=== PATIENT | female | born 1960 | race Caucasian/White ===

== ENCOUNTER 2023-03-31 07:07 | Observation (INO) ==
--- NOTE | 2023-02-27 12:04 | PAT Medication Instructions ---
Medication Instructions Date of Service February 27, 2023 Home Medications Medication Instructions Recorded hydrocodone 5 mg-acetaminophen 325 1 tab PO Q6H PRN pain #30 tabs 01/25/ mg tablet chlorthalidone 25 mg tablet 12.5 mg PO QAM fluoxetine 40 mg capsule 40 mg PO QAM folic acid 1 mg tablet 2 mg PO QAM levothyroxine 100 mcg tablet (Synthroid) 100 mcg PO QAM losartan 50 mg tablet 50 mg PO QAM metformin 500 mg tablet 500 mg PO BID propranolol 80 mg capsule,24 hr,extended release (Inderal LA) 80 mg PO QAM hydrocodone 5 mg-acetaminophen 325 mg tablet 1 tab PO Q6H PRN pain cholecalciferol (vitamin D3) 25 mcg (1,000 unit) tablet (Vitamin D3) 50 mcg PO QAM methotrexate sodium 2.5 mg tablet 10 mg PO WK upadacitinib 15 mg tablet,extended release 24 hr (Rinvoq) 15 mg PO QAM ASK your prescriber and surgeon upadacitinib 15 mg tablet,extended release 24 hr (Rinvoq) 15 mg PO QAM STOP 7 days prior to surgery (if okay with prescriber) methotrexate sodium 2.5 mg tablet 10 mg PO WK DO NOT take the morning of surgery chlorthalidone 25 mg tablet 12.5 mg PO QAM folic acid 1 mg tablet 2 mg PO QAM losartan 50 mg tablet 50 mg PO QAM metformin 500 mg tablet 500 mg PO BID cholecalciferol (vitamin D3) 25 mcg (1,000 unit) tablet (Vitamin D3) 50 mcg PO QAM Take morning of surgery With a small sip of water, OTHERWISE NOTHING TO EAT OR DRINK AFTER MIDNIGHT: fluoxetine 40 mg capsule 40 mg PO QAM levothyroxine 100 mcg tablet (Synthroid) 100 mcg PO QAM propranolol 80 mg capsule,24 hr,extended release (Inderal LA) 80 mg PO QAM hydrocodone 5 mg-acetaminophen 325 mg tablet 1 tab PO Q6H PRN pain (if needed) Take evening before surgery metformin 500 mg tablet 500 mg PO BID hydrocodone 5 mg-acetaminophen 325 mg tablet 1 tab PO Q6H PRN pain (if needed) Other Notes If you have any questions please call us at [phone] or [phone] or [phone] or [phone]
--- NOTE | 2023-03-02 14:03 | Anesthesiology Consultation ---
Date of Service March 02, 2023 Assessment & Plan (1) Encounter for pre-operative examination: Chart Review Chart Review: Acceptable Risk for Surgery (pending response from PCP re: anemia ) and Patient seen in Pre Admission Testing - Please send optimization form to PCP (Dr. Nikita Pro) re: anemia - Check BSG AM DOS - Due to BMI and PMH- patient is NOT an ideal OPJ candidate (currently scheduled as 23 hour observation) Per [facility] appt on 03/02/23, patient with recent sinus infection (symptoms began around 02/20/23- sinus pressure, nasal congestion- improved - mild residual post nasal drip/congestion, cough). Seen by PCP and treated with abx for sinus infection. No known Covid contacts in the past 21 days. Has not tested Covid positive in the past 90 salgado. Pt is vaccinated for Covid. Preop Covid testing done at [facility] appt 03/02/23=negative. Educated on importance of using Covid precautions one week prior to surgery History Surgery Operation Date: 03/31/23 12:45 Proposed Procedures p Right Total Knee Arthroplasty - Sesar Huhges, Height/Weight Height: 5 ft 3 in Weight: 117.5 kg Allergies Allergy/AdvReac Type Severity Reaction Status Date / Time No Known Drug Allergies Allergy Verified 02/27/23 10:05 adhesive tape AdvReac Intermediate skin Verified 02/27/23 10:05 irritation Medications Home Medications Medication Instructions Recorded Confirmed Last Taken chlorthalidone 25 mg tablet 12.5 mg PO QAM 07/20/22 02/27/23 Unknown fluoxetine 40 mg capsule 40 mg PO QAM 07/20/22 02/27/23 Unknown folic acid 1 mg tablet 2 mg PO QAM 07/20/22 02/27/23 Unknown levothyroxine 100 mcg tablet 100 mcg PO QAM 07/20/22 02/27/23 Unknown (Synthroid) losartan 50 mg tablet 50 mg PO QAM 07/20/22 02/27/23 Unknown metformin 500 mg tablet 500 mg PO BID 07/20/22 02/27/23 Unknown propranolol 80 mg capsule,24 80 mg PO QAM 07/20/22 02/27/23 Unknown hr,extended release (Inderal LA) hydrocodone 5 mg-acetaminophen 325 1 tab PO Q6H PRN pain #30 tabs 01/25/23 02/27/23 Unknown mg tablet cholecalciferol (vitamin D3) 25 50 mcg PO QAM 02/27/23 02/27/23 Unknown mcg (1,000 unit) tablet (Vitamin D3) methotrexate sodium 2.5 mg tablet 10 mg PO WK 02/27/23 02/27/23 Unknown upadacitinib 15 mg tablet,extended 15 mg PO QAM 02/27/23 02/27/23 Unknown release 24 hr (Rinvoq) Past Medical History Medical History Anxiety Chronic kidney disease stage 3b -> stable, follows with Dr Noonan ([place]) Depression Diabetes mellitus, type 2 NIDDM History of hyperthyroidism as a child Hx of motion sickness Hypertension Nausea and vomiting after administration of anesthetic agent Osteoarthritis Postsurgical hypothyroidism Psoriatic arthritis follows with [facility] [place] [facility]. 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 Attempted surgical repair 5 times. Occ bleeding - no infection; currently stable Exercise / Class Metabolic Activity III < 4 Walking/Shop/Light housework (no chest pain or SOB with flat surface ambulation - uses cane ) Past Family History Family History Other No family history of adverse response to anesthesia Past Surgical History Surgical History History of adenoidectomy History of colonoscopy History of rectal surgery several surgeries to attempt to repair the rectal fistula (about 5 surgeries). History of thyroidectomy, subtotal 90% of thyroid removed as a child for hyperthyroidism and goiters. History of tonsillectomy S/P excision of lipoma from the side of knee Past Anesthesia History No Hx of Anesthesia Complications (with exception to PONV ) and No Family Hx of Anesthesia Complications History of PONV History of PONV (improved with pre treating with anti nausea medication ) and Hx of Motion Sickness Social History Smoking Status: Former smoker tobacco type: cigarettes Do You Dip or Chew Tobacco: No Smoking End Date: 1989 Hx Alcohol Use: No Hx Substance Use: No substance use type: does not use Review of Systems Mild residual cough - from recent sinus infection (treated with abx) Hx of snoring- no witnessed apnea- no hx of sleep study Patient denies chest pain, shortness of breath, dyspnea on exertion, reflux, wheezing, palpitations. No hx of seizures, stroke, ND. No hx of blood clots or blood transfusions Physical Exam Vital Signs VITALS BP 140/69 P 81 TEMP 98.3 SP02 98% RESP 16 Constitutional no acute distress ENMT Mouth: no TMJ clicking Thyromental Distance: < 3.5 Finger Breadths Mallampati Class: I Neck + limited neck extension (mild) Respiratory normal respiratory effort; no respiratory distress Auscultation: lungs clear to auscultation bilaterally; no wheezes Cardiovascular Rate/Rhythm: regular rate and regular rhythm Heart Sounds: no murmur Vessels: no carotid bruit Musculoskeletal Spine: + pain with cervical ROM (mild) Extremities: extremities normal to inspection Psychiatric Orientation: alert Lab Results Anesthesia Preop Results Results Anesthesia Widget: WBC 7.28 K/ul (4.8-10.8) 03/02/23 Hgb 10.6 g/dl (12.0-16.0) L 03/02/23 Hct 32.1 % (37.0-47.0) L 03/02/23 Plt 275 K/uL (130-400) 03/02/23 Na 137 mmol/L (136-145) 03/02/23 K 4.5 mmol/L (3.5-5.1) 03/02/23 Cl 101 mmol/L (98-107) 03/02/23 CO2 28 mmol/L (21-32) 03/02/23 BUN 22 mg/dl (6-23) 03/02/23 Creat 1.30 mg/dl (0.6-1.2) H 03/02/23 Glucose Level 79 mg/dl (70-99(Fasting)) 03/02/23 PT 10.7 Seconds (9.0-12.0) 03/02/23 PTT 24.2 Seconds (21.0-31.0) 03/02/23 INR 1.0 (0.9-1.1) 03/02/23 HA1c 5.8 % (4.5-5.6) H 03/02/23 Blood Type O Positive 03/02/23 Antibody Screen NEGATIVE 03/02/23 Testing Laboratory Results Anemia- optimization form sent to PCP Mildly elevated creatinine- hx of CKD Electrocardiogram Date: 03/02/23 Findings: + NSR @ (64bpm ) Normal EKG per cardio Chest X-Ray Date: 03/02/23 FINDINGS: Cardiomediastinal and hilar silhouettes are within normal limits. No pneumothorax, pleural effusion, airspace consolidation or overt pulmonary edema. Age-indeterminate compression deformities at the thoracolumbar junction. Mild mid thoracic dextroscoliosis. IMPRESSION: No acute process.
--- NOTE | 2023-03-30 14:14 | History & Physical Report ---
Date of Service March 30, 2023 Assessment & Plan (1) Osteoarthritis of right knee: We will proceed with a right total knee arthroplasty. Postoperatively she will be started on aspirin for DVT prophylaxis and kept overnight in the hospital for postop medical management. She plans to have the hospital set up home health before discharge. History of Present Illness Chief Complaint: Osteoarthritis of the right knee. Primary Care Provider: Nikita Chu Morteza Del Cid is a pleasant 62-year-old female who has been dealing with chronicworsening bilateral knee pain. Her right is worse than the left. She is really struggling. She cannot goup and downstairs any more. She has trouble walking any distance. She lives in constant pain with her knees. We have tried conservative treatment including activity modification and injections. She hasrecentlylost some weight, butshe is still dealing with a lot of knee pain. X-rays and clinical examination been diagnostic for advanced osteoarthritis of the right knee. After failed conservative treatment, she has elected proceed with a right total knee arthroplasty. Allergies Allergy/AdvReac Type Severity Reaction Status Date / Time No Known Drug Allergies Allergy Verified 02/27/23 10:05 adhesive tape AdvReac Intermediate skin Verified 02/27/23 10:05 irritation Home Medications Medication Instructions Recorded Confirmed Type chlorthalidone 25 mg tablet 12.5 mg PO QAM 07/20/22 02/27/23 History fluoxetine 40 mg capsule 40 mg PO QAM 07/20/22 02/27/23 History folic acid 1 mg tablet 2 mg PO QAM 07/20/22 02/27/23 History levothyroxine 100 mcg tablet 100 mcg PO QAM 07/20/22 02/27/23 History (Synthroid) losartan 50 mg tablet 50 mg PO QAM 07/20/22 02/27/23 History metformin 500 mg tablet 500 mg PO BID 07/20/22 02/27/23 History propranolol 80 mg capsule,24 80 mg PO QAM 07/20/22 02/27/23 History hr,extended release (Inderal LA) hydrocodone 5 mg-acetaminophen 325 1 tab PO Q6H PRN pain #30 tabs 01/25/23 02/27/23 Rx mg tablet cholecalciferol (vitamin D3) 25 50 mcg PO QAM 02/27/23 02/27/23 History mcg (1,000 unit) tablet (Vitamin D3) methotrexate sodium 2.5 mg tablet 10 mg PO WK 02/27/23 02/27/23 History upadacitinib 15 mg tablet,extended 15 mg PO QAM 02/27/23 02/27/23 History release 24 hr (Rinvoq) Past Med/Surg History Medical History Anxiety Chronic kidney disease stage 3b -> stable, follows with Dr Noonan ([place]) Depression Diabetes mellitus, type 2 NIDDM History of hyperthyroidism as a child Hx of motion sickness Hypertension Nausea and vomiting after administration of anesthetic agent Osteoarthritis Postsurgical hypothyroidism Psoriatic arthritis follows with Rheumatology [place] [facility]. 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 Attempted surgical repair 5 times. Occ bleeding - no infection; currently stable Surgical History History of adenoidectomy History of colonoscopy History of rectal surgery several surgeries to attempt to repair the rectal fistula (about 5 surgeries). History of thyroidectomy, subtotal 90% of thyroid removed as a child for hyperthyroidism and goiters. History of tonsillectomy S/P excision of lipoma from the side of knee Family History Other No family history of adverse response to anesthesia Social History Smoking Status: Former smoker Smoking End Date: 1989; Second Hand Exposure: No; Do You Dip or Chew Tobacco: No; Tobacco Cessation Education Requested by Patient: No Hx Alcohol Use: No Hx Substance Use: No Preferred Language: Mohawk Communication Ability: Effective Field Marketing Representative Required: No Beliefs That Will Affect Care: None Current Living Situation: Spouse Other Information That Helps Us Care for You: No Feels Safe at Home: Yes Safety Concerns: Feels Safe At This Time Assistive Devices: Cane, Glasses and Walker Review of Systems All systems reviewed & are unremarkable except as noted in HPI & below. Physical Exam On physical examination of the right knee, she has a varus deformity. She has range of motion of 0 to 120 degrees. No instability. Pain of the distal medial femoral condyle and over the medial joint line.. Constitutional WD/WN, vitals as above Eyes PERRL, conjunctivae normal, anicteric sclerae ENMT external ear and nose normal, oropharynx normal Neck trachea midline, no thyromegaly Respiratory normal respiratory effort, lungs clear to auscultation Cardiovascular RRR, no murmur, no edema Gastrointestinal (Abdomen) normal bowel sounds, soft, nontender, no hepatosplenomegaly Skin no rashes, warm and dry Psychiatric A+Ox3, euthymic affect Results & Data Results & Data Laboratory Results . Diagnostic Findings X-rays of the right knee show advanced osteoarthritis with joint space narrowing, osteophyte formation, and [id number]-yf-liqu articulation. PG Care Time/CCT Total # of Minutes Spent Total Time Spent with Patient: Total time spent is greater than 50% in coordination of care (as documented) at patient's floor/unit and/or counseling patient: Coding Level of Care Code None Diagnoses Osteoarthritis of right knee M17.11
[~2023-03-31 07:07] MED LIST: ACETAMINOPHEN 500 MG TAB PO SCH; BUPIVACAINE 0.5 % 5 MG/1 ML PF 10ML VIAL ONE; FAMOTIDINE 20 MG TAB PO SCH; GABAPENTIN 300 MG CAP PO SCH; Ketorolac (*for OR use only*) 30 MG, dexAMETHasone 4 MG, KETAMINE HCL (**OR use only) 1... INFIL SCH; LR 500ML BOLUS, THEN 15ML/HR IV SCH; LR 60ML/HR IV SCH; ROPIVACAINE 0.5% 5 MG/ML 30 ML VIAL ONE; TRANEXAMIC ACID 1,000 MG **IV Intra-op IV SCH; TRANEXAMIC ACID 1,000 MG **IV Pre-op IV SCH; ceFAZolin 2000MG 2,000 MG/15 ML SYR IV SCH; dexAMETHasone 4 MG TAB PO SCH
[2023-03-31] MEDS ORDERED: KETAMINE 50 MG/5 ML SYRINGE ONE (08:25)
[2023-03-31] MEDS ORDERED: ONDANSETRON INJ 2 MG/ML 2 ML VIAL ONE (08:25)
[2023-03-31] MEDS ORDERED: MIDAZOLAM HCL 1 MG/ML 2ML VIAL ONE (08:25)
[2023-03-31] MEDS ORDERED: PROPOFOL IV EMULSION 10 MG/ML 20 ML VIAL IV ONE ×2 (08:25→11:03)
[2023-03-31] MEDS ORDERED: GLYCOPYRROLATE 0.2 MG/ML VIAL ONE (08:25)
[2023-03-31] MEDS ORDERED: LIDOCAINE 2% 2 ML VIAL/AMP(20MG/ML) INFIL ONE (08:25)
[2023-03-31] MEDS ORDERED: ATROPINE SULFATE 0.1 MG/ML 10ML SYR IV PRN (08:55)
[2023-03-31] MEDS ORDERED: ONDANSETRON INJ 2 MG/ML 2 ML VIAL IV PRN ×2 (08:55→13:32)
[2023-03-31] MEDS ORDERED: fentaNYL citrate PF 100 MCG/2 ML VIAL IV PRN (08:55)
[2023-03-31] MEDS ORDERED: ePHEDrine sulfate 50 MG/ML AMP IV PRN (08:55)
--- NOTE | 2023-03-31 09:07 | History & Physical Bridge Note ---
Date of Service March 31, 2023 History & Physical Bridge Note I have examined the patient, reviewed the History & Physical and in the interval since the performance of the History & Physical I have noted the following changes of clinical significance: no changes noted
[2023-03-31] MEDS ORDERED: ORTHO JOINT ANESTHETIC ONE (09:30)
[2023-03-31] MEDS ORDERED: PHENYLEPHRINE HCL 10 MG/ML VIAL ONE (10:49)
--- NOTE | 2023-03-31 11:14 | Operative Report ---
PG Post Operative Report Pre & Post Diagnosis Operation Date: 03/31/23 10:00 Pre-Op Diagnosis: Osteoarthritis of right knee Post-Op Diagnosis: Osteoarthritis of right knee I identified the patient and participated in the time-out.: Yes Procedure Operation Date: 03/31/23 10:00 Actual Procedures p Right Total Knee Arthroplasty(Right) - Sesar Hugehs DO Surgeon Sesar Hughes DO Chief Operating Engineer Sesar Kendall PA-C Estimated Blood Loss 30 Findings Consistent with Post-Op Diagnosis Specimens Right femoral tibial bone Description of Procedure Implants used: I used a Gordon Persona total knee arthroplasty system with a size 7 PS femur, E tibia with a 30 mm stem extension, 31 oval patella, and a size 12 CPS polyethylene bearing. All components were cemented in place with Biomet cement. Maria Eugenia arrived [facility] for the above procedure. She was seen in the preoperative holding area and the operative extremity was identified and signed. She was given a preoperative antibiotic, TXA, a spinal anesthetic and an adductor nerve block. She was taken back to the operating room and laid on the table in supine position. She was given basic sedation. The operative knee was then prepped and draped in sterile fashion. A timeout was done, and the patient and the operative extremity was properly identified. A midline incision was made directly over the patella. Dissection was taken down to the extensor mechanism. A midvastus arthrotomy was used. The medial retinaculum was released and the fat pad was mostly excised. The knee was flexed and the ACL, PCL, and meniscus were removed. A drill was sent down the center of the femoral canal followed by an intramedullary melia. Off that melia a distal femoral cutting block was placed. 9 mm was resected off the distal femur at 5 of valgus. A posterior referencing AP sizing guide was then placed on the distal femur. The femur measured to be a size 7. 2 drill holes were placed in 3 of external rotation. A 4-in-1 cutting block was then impacted into place. Anterior, posterior, and chamfer cuts were then made. The proximal tibia was then exposed. An external tibial alignment guide was placed. A tibial cut guide was then anchored in place and the proximal tibia was then resected. The posterior aspect of the knee was then opened up and any additional meniscus fragments and osteophytes were removed. The tibia measured to be a size E. The tibial plate was then placed in the appropriate rotation and the tibia was drilled and punched. Trial components were then placed. I used a size 12 CPS polyethylene insert. The knee was brought through a full range of motion and felt to be stable. The peg holes for the femoral component were then drilled. The patella was then everted and 9 mm was resected off the posterior aspect of the patella. The patella measured to be a size 31 oval. 3 peg holes were then drilled. A trial patella was placed. The knee was once again brought through a full range of motion and felt to be stable. Trial components were then removed. The surrounding soft tissues were injected with 100 cc of an orthopedic pain control cocktail. All components were then cemented into place with Biomet cement. The final polyethylene insert was then snapped into place. Once cement was dry the tourniquet was deflated. Hemostasis was obtained. A dilute betadyne lavage was then done for 3 minutes. The joint was then irrigated with normal saline solution. The midvastus arthrotomy was then closed with #1 Vicryl suture. The skin was closed with 2-0 Vicryl, 3-0V lock suture, and corby. A soft compressive dressing was placed. She was then transferred to a hospital bed and taken to the postanesthesia care unit in stable condition. She tolerated the procedure well. Sesar Kendall PA-C, was present for the entire procedure. He was critical for patient positioning, prepping, draping, retraction exposure, wound closure and application of sterile dressing. I attest to the content of the Intraoperative Record and any orders documented therein. Any exceptions are noted below.
--- NOTE | 2023-03-31 11:58 | XRay Report ---
TWO VIEWS RIGHT KNEE CLINICAL HISTORY: Postoperative examination. FINDINGS: AP and crosstable lateral portable views of the right knee are obtained. A right knee arthr oplasty is in near anatomic alignment. There has been undersurface remodeling of the patella. No acut e fracture is seen. There are expected postoperative changes around the knee including skin clips, so ft tissue edema, and subcutaneous gas. IMPRESSION: Expected postoperative changes status post right knee arthroplasty. No acute fracture is seen. ACT 112: Negative or not required by law. Electronically signed by: Lyle Padilla M.D. 03/31/2023 11:57 AM
--- NOTE | 2023-03-31 12:23 | Anesthesiology Progress Note ---
Date of Service March 31, 2023 Anesthesia Post Procedure Vital Signs Vital Signs: Temp Pulse Pulse Resp BP Pulse Ox O2 Del Method 03/31/23 12:15 97.3 F L 61 12 131/59 L 96 Room Air 03/31/23 11:55 61 13 124/72 100 Room Air 03/31/23 12:05 61 13 141/63 H 97 Room Air 03/31/23 11:45 67 14 118/68 100 Oxymask 03/31/23 11:37 98.1 F 68 16 123/63 97 Oxymask 03/31/23 07:58 98.6 F 62 20 144/72 H 99 Room Air O2 Flow Rate 03/31/23 12:15 03/31/23 11:55 03/31/23 12:05 03/31/23 11:45 3 03/31/23 11:37 5 03/31/23 07:58 Pain Intensity Right Knee: Pain Intensity: 0 Transfer of Care Handoff Completed per policy Notes Mental Status: alert / awake / arousable and participated in evaluation Patient Amnestic to Procedure: Yes Nausea / Vomiting: adequately controlled Pain: adequately controlled Airway Patency, RR, SpO2: stable & adequate BP & HR: stable & adequate Hydration State: stable & adequate Neuraxial Anesthesia: was administered and sensory block is resolving Anesthetic Complications: no major complications apparent and Pt Satisfied with anesthetic care
[2023-03-31] MEDS ORDERED: NALOXONE HCL 0.4 MG/1 ML VIAL/CARP IV PRN (13:32)
[2023-03-31] MEDS ORDERED: oxyCODONE HCL IR 5 MG TAB (IMMEDIATE RELEASE) PO PRN (13:32)
[2023-03-31] MEDS ORDERED: METOCLOPRAMIDE HCL INJ 5 MG/ML 2 ML VIAL IV PRN (13:32)
[2023-03-31] MEDS ORDERED: bisacodyL 10 MG SUPP PR PRN (13:32)
[2023-03-31] MEDS ORDERED: PHARMACY GLYCEMIC MGMT CONSULT PRN (13:32)
[2023-03-31] MEDS ORDERED: MAGNESIUM HYDROXIDE SUSP 30 ML UDC PO PRN (13:32)
[2023-03-31] MEDS ORDERED: HYDROmorphone INJ 0.5 MG/0.5 ML SYR IV PRN (13:32)
[2023-03-31] MEDS: ACETAMINOPHEN 500 MG TAB PO SCH ×2 (14:28→21:08)
[2023-03-31] MEDS ORDERED: GLUCOSE 40% GEL 15 GM TUBE PO PRN (14:30)
[2023-03-31] MEDS ORDERED: DEXTROSE 50% 50 ML SYRINGE IV PRN (14:30)
[2023-03-31] MEDS ORDERED: NovoLIN-N (NPH) PER UNIT CHARGE SQ ONE (14:30)
[2023-03-31] MEDS ORDERED: GLUCAGON FOR INJ 1 MG VIAL IM PRN (14:30)
[2023-03-31] MEDS ORDERED: GLUCOSE 10 TAB/TUBE PO PRN (14:30)
[2023-03-31] MEDS ORDERED: CARBOHYDRATES FOR HYPOGLYCEMIA PO PRN (14:30)
--- NOTE | 2023-03-31 14:34 | Pharmacy Report ---
Pharmacy Glycemic Short Note 2 - Date of Service March 31, 2023 - Glycemic Short BSG Results (Last 24 hours): 03/31/23 03/31/23 03/31/23 07:45 11:40 13:58 POC Glucose 123 H 134 H 156 H OUTPATIENT ANTIDIABETIC REGIMEN: * metformin 500 mg PO BID * HbA1C = 5.8% (03/02/23) ASSESSMENT: * Ms uSn is a 62 y/o F with a PMH of T2DM who presents for R TKA. * Preop BSG was 123 mg/dL. Postop BSG was 156 mg/dL. * Patient received dexamethasone 8 mg PO Preop x 1 + dexamethasone 4 mg in ortho mix. * Due to steroids, will give NPH 30 units (0.4 units/kg of adjusted body weight) x 1. * Novolog weight-based stress 2/3. PLAN FOR INPATIENT GLYCEMIC CONTROL: * Hold outpatient oral diabetes medications * Basal insulin * NPH 30 units SQ x 1 * Bolus insulin * NovoLog per scale ACHS or Q6hrs while NPO * Goal Range: Low 110 mg/dL - High 140 mg/dL * Correction Factor: 20 mg/dL/unit * Nutritional / Prandial insulin per carb ratio of 1 unit per 6 grams CHO consumed
[2023-03-31] MEDS: SODIUM CHLORIDE 0.9% 1000ML 1,000 ML IV SCH (14:35)
[2023-03-31] MEDS: KETOROLAC TROMETHAMINE 15 MG/ML VIAL IV SCH ×2 (14:35→21:08)
[2023-03-31] MEDS: INSULIN ASPART PER UNIT CHARGE SC SCH ×3 (14:36→21:45)
[2023-03-31] MEDS: ceFAZolin 2000MG 2,000 MG/15 ML SYR IV SCH (18:08)
[2023-03-31] MEDS ORDERED: SENNA 8.6 MG TAB PO SCH (21:00)
[2023-03-31] MEDS: DOCUSATE SODIUM 100 MG CAP PO SCH (21:08)
[2023-03-31] MEDS: ASPIRIN 81 MG ECTAB PO SCH (21:08)
[2023-04-01] MEDS: SODIUM CHLORIDE 0.9% 1000ML 1,000 ML IV SCH (00:46)
[2023-04-01] MEDS: KETOROLAC TROMETHAMINE 15 MG/ML VIAL IV SCH ×2 (03:12→08:16)
[2023-04-01] MEDS: ceFAZolin 2000MG 2,000 MG/15 ML SYR IV SCH (03:13)
[2023-04-01] MEDS: ACETAMINOPHEN 500 MG TAB PO SCH (05:55)
[2023-04-01] MEDS ORDERED: LEVOTHYROXINE SODIUM 100 MCG TABLET PO SCH (06:30)
[2023-04-01] MEDS: ASPIRIN 81 MG ECTAB PO SCH (08:16)
[2023-04-01] MEDS: DOCUSATE SODIUM 100 MG CAP PO SCH (08:16)
[2023-04-01] MEDS ORDERED: FLUoxetine HCL 20 MG CAP PO SCH (09:00)
[2023-04-01] MEDS ORDERED: PROPRANOLOL HCL LA 80 MG CAPCR PO SCH (09:00)
[2023-04-01] MEDS ORDERED: CHLORTHALIDONE 25 MG TAB PO SCH (09:00)
[2023-04-01] MEDS ORDERED: MULTIVITAMIN TAB PO SCH (09:00)
[2023-04-01] MEDS ORDERED: NON-FORMULARY MEDICATION (Upadacitinib [Rinvoq] 15 mg Tablet Extended Release 24 Hr) PO SCH (09:00)
[2023-04-01] MEDS ORDERED: LOSARTAN POTASSIUM 50 MG TAB PO SCH (09:00)
[2023-04-01] MEDS: INSULIN ASPART PER UNIT CHARGE SC SCH (09:23)
--- NOTE | 2023-04-01 09:36 | Orthopedic Progress Note ---
Date of Service April 01, 2023 Assessment & Plan (1) Status post right knee replacement: Overall she is doing very well. She is not having much pain in the right knee. She will be seen by physical therapy today for ambulation and range of motion exercises. She is on aspirin for DVT prophylaxis. The nursing staff can change her dressing after physical therapy. She will be discharged home later today. She will follow-up with orthopedics in 2 weeks. Dao Del Cid was seen and examined at bedside this morning. Overall she is doing very well. She is not having much pain in the right knee. She is been up and ambulating to the bathroom. She is no complaints.. Review of Systems All systems reviewed & are unremarkable except as noted in HPI & below. Physical Exam On physical examination the right knee, the dressing is clean and dry. Her leg is out full extension. She has active dorsiflexion plantarflexion of her right ankle.. Results & Data Results & Data Laboratory Results . Diagnostic Findings Postoperative x-rays of the right knee show the prosthesis to be in anatomic alignment without any evidence of fracture complication, or loosening.. PG Care Time/CCT Total # of Minutes Spent Total Time Spent with Patient: Total time spent is greater than 50% in coordination of care (as documented) at patient's floor/unit and/or counseling patient: Coding Level of Care Code 42072 Post Operative Follow-Up Diagnoses Status post right knee replacement Z96.651
--- NOTE | 2023-04-01 09:37 | Discharge Summary ---
Date of Service April 01, 2023 Admission HPI (Per Admitting) Maria Eugenia is a pleasant 62-year-old female who has been dealing with chronicworsening bilateral knee pain. Her right is worse than the left. She is really struggling. She cannot goup and downstairs any more. She has trouble walking any distance. She lives in constant pain with her knees. We have tried conservative treatment including activity modification and injections. She hasrecentlylost some weight, butscar is still dealing with a lot of knee pain. X-rays and clinical examination been diagnostic for advanced osteoarthritis of the right knee. After failed conservative treatment, she has elected proceed with a right total knee arthroplasty. Admission Exam (Per Admitting) On physical examination of the right knee, she has a varus deformity. She has range of motion of 0 to 120 degrees. No instability. Pain of the distal medial femoral condyle and over the medial joint line.. Principal Diagnosis Same as "Discharge Diagnosis" noted below under Discharge Instructions. Discharge Exam On physical examination the right knee, the dressing is clean and dry. Her leg is out full extension. She has active dorsiflexion plantarflexion of her right ankle.. Discharge Data Procedures Performed Operation Date: 03/31/23 10:00 Actual Procedures p Right Total Knee Arthroplasty, Cemented(Right) - Sesar Hughes DO Ordered Studies 03/31/23 05:00 US - OR guided needle placemen Routine Hospital Course (1) Status post right knee replacement: On March 31, 2023 Maria Eugenia arrived at [facility] and underwent a right knee replaced without complication. She had a spinal anesthetic. Postoperatively she was started on aspirin for DVT prophylaxis and transferred to the general orthopedic floors. Her hospital course was uneventful. On postop day #1, her vital signs were stable and her pain was well controlled. She was able to participate well with physical therapy doing ambulation and range of motion exercises. She was then discharged home. She will follow-up orthopedics in 2 weeks. PG Care Time/CCT Total # of Minutes Spent Total Time Spent with Patient: Total time spent is greater than 50% in coordination of care (as documented) at patient's floor/unit and/or counseling patient: Discharge Plan Discharge Items Patient Disposition: Home - Home Health Services Reason For Visit: DJD Right Knee Discharge Diagnosis: Right knee replacement Activity: Per Instructions section Non-emergency contact: Surgeon Call non-emergency contact if: your wound has increased redness and your wound has increased drainage Follow-up/Referrals: PCP,NO [Physician] - Diet: Regular Addtl Attending Provider Instructions: Activity and Therapy Recommendations: * If you are using [facility] then therapy will be provided at your home until they feel you have accomplished all of your goals. * If you are using [facility] then Physical Therapy will be provided until they feel you are ready to start Outpatient Physical Therapy. * If you are not using home therapy then Outpatient Physical Therapy should start about 3-5 days from your day of surgery. Therapy will last about 6-10 weeks * It is important not to put a pillow under your knee when you are relaxing or sleeping. It is just as important to make sure you are getting your knee perfectly straight as it is to regain your knee bend. * You were shown a series of exercises in the hospital. Do these exercises three times each day including the exercises you were shown in physical therapy. * Get up and walk several times each day. For the first four weeks, try not to stand or walk for more than one hour at a time. If you do stand or walk for more than one hour, you will not hurt anything, but your leg will likely swell. * As you feel comfortable, you may change from the walker or crutches to a cane and then to independent walking. Medications: * Narcotic You will likely be sent home from the hospital with a prescription for the narcotic pain medication that worked best throughout your stay. * Aspirin Most patients will be required to take Aspirin 81mg twice a day for 6 weeks after surgery. This is obtained [id number] and a prescription is not necessary. * Other medications may be prescribed for specific circumstances. If you have any questions, please call the office at . * Resume previous home medications unless otherwise instructed TEDs/Elastic Stockings: The white elastic stockings help limit swelling and prevent blood clots from fo rming in your legs.~ The more you wear them, the more they work. Wear them for six weeks. Dressing Care: The dressing can be changed after physical therapy on postop day #1. Daily dry dressing changes for a few days, especially if the incision is still draining some. If the incision is not draining then you may leave the corby open to air. If there is a little bit of drainage or if the corby are getting stuck on your clothing then cover the incision with a dry dressing. The corby will be removed at your 2 week follow-up appointment. Showering: You may shower 5 days from the day of surgery as long as the incision is no longer draining. You may shower with the corby exposed. Let soapy water run over the corby and pat them dry. Do not scrub or soak the incision. Things To Watch For: * Drainage from the incision site that occurs more than one week after your surgery. * Increased redness at the incision site. * Fever above 102 degrees Fahrenheit. * Unusual chest pain or shortness of breath. * Call [facility] at with any of the above problems Follow-Up Visit: Follow-up with Dr. Hughes's PA (Sesar Kendall) 2-3 weeks after your day of surgery. He will remove your corby and answer any questions. If you have any additional questions or concerns, Dr Hughes is usually in the office at the same time and will be available An appointment was probably scheduled when you signed-up for surgery in the office. If you have any questions call Office Instructions: More detailed instructions as well as Frequently Asked Questions were provided in a folder by our office when you signed-up for surgery. Please review these instructions when you get home. If you have any further questions or concerns, please feel free to call the office at [phone] Pending Studies at Discharge: No Stand-Alone Forms: [facility], Smoking Cessation Medications and DC Order Prescriptions: New oxycodone 5 mg Tablet 5 mg PO Q4H PRN (Reason: pain) Qty: 30 0RF aspirin 81 mg Tablet,Delayed Release (Dr/Ec) 81 mg PO BID 42 Days Qty: 0 0RF Continued chlorthalidone 25 mg tablet 12.5 mg PO QAM propranolol [Inderal LA] 80 mg capsule,extended release 24hr 80 mg PO QAM levothyroxine [Synthroid] 100 mcg tablet 100 mcg PO QAM fluoxetine 40 mg capsule 40 mg PO QAM folic acid 1 mg tablet 2 mg PO QAM losartan 50 mg tablet 50 mg PO QAM metformin 500 mg tablet 500 mg PO BID methotrexate sodium 2.5 mg Tablet 10 mg PO WK cholecalciferol (vitamin D3) [Vitamin D3] 25 mcg (1,000 unit) Tablet 50 mcg PO QAM Rinvoq 15 mg Tablet Extended Release 24 Hr 15 mg PO QAM Discontinued hydrocodone-acetaminophen 5-325 mg tablet 1 tab PO Q6H PRN (Reason: pain) Qty: 30 0RF Admission Data Admit Date/Time: 03/31/23 11:40 Attending Provider: Sesar Hughes Admit Provider: Sesar Hughes Primary Care Provider: Nikita Pro Other Providers: [facility],Home Health ; [facility]
[2023-04-06] MEDS ORDERED: metHOTREXate sodium 2.5 MG TAB PO SCH (09:00)
== END 2023-04-01 11:15 | disposition home health service (06) ==
LOC: ASU 07:07 → PACUINP 07:07 → 3W 13:27

== ENCOUNTER 2023-12-25 04:59 | Observation (INO) ==
--- NOTE | 2023-11-29 12:08 | PAT Medication Instructions ---
Medication Instructions Date of Service November 29, 2023 Home Medications chlorthalidone 25 mg tablet 12.5 mg PO QAM fluoxetine 40 mg capsule 40 mg PO QAM folic acid 1 mg tablet 2 mg PO QAM levothyroxine 100 mcg tablet (Synthroid) 100 mcg PO QAM losartan 50 mg tablet 50 mg PO QAM metformin 500 mg tablet 500 mg PO BID propranolol 80 mg capsule,24 hr,extended release (Inderal LA) 80 mg PO QAM cholecalciferol (vitamin D3) 25 mcg (1,000 unit) tablet (Vitamin D3) 50 mcg PO QAM methotrexate sodium 2.5 mg tablet 10 mg PO WK upadacitinib 15 mg tablet,extended release 24 hr (Rinvoq) 15 mg PO QAM amoxicillin 500 mg tablet 1,000 mg PO BID clarithromycin 500 mg tablet 500 mg PO BID oxycodone 5 mg tablet 5 mg PO UD PRN Pain pantoprazole 40 mg tablet,delayed release (Protonix) 40 mg PO QAM Continue as directed amoxicillin 500 mg tablet 1,000 mg PO BID clarithromycin 500 mg tablet 500 mg PO BID ASK your prescriber and surgeon methotrexate sodium 2.5 mg tablet 10 mg PO WK upadacitinib 15 mg tablet,extended release 24 hr (Rinvoq) 15 mg PO QAM DO NOT take the morning of surgery chlorthalidone 25 mg tablet 12.5 mg PO QAM folic acid 1 mg tablet 2 mg PO QAM losartan 50 mg tablet 50 mg PO QAM metformin 500 mg tablet 500 mg PO BID cholecalciferol (vitamin D3) 25 mcg (1,000 unit) tablet (Vitamin D3) 50 mcg PO QAM Take morning of surgery With a small sip of water, OTHERWISE NOTHING TO EAT OR DRINK AFTER MIDNIGHT: fluoxetine 40 mg capsule 40 mg PO QAM levothyroxine 100 mcg tablet (Synthroid) 100 mcg PO QAM propranolol 80 mg capsule,24 hr,extended release (Inderal LA) 80 mg PO QAM oxycodone 5 mg tablet 5 mg PO UD PRN Pain (if needed) pantoprazole 40 mg tablet,delayed release (Protonix) 40 mg PO QAM Take evening before surgery metformin 500 mg tablet 500 mg PO BID oxycodone 5 mg tablet 5 mg PO UD PRN Pain (if needed) Other Notes If you have any questions please call us at [phone] or [phone] or [phone] or [phone]
--- NOTE | 2023-12-05 14:43 | Anesthesiology Consultation ---
Date of Service December 05, 2023 Assessment & Plan (1) Encounter for pre-operative examination: - Check BSG AM DOS - Infectious disease screening: Per assessment on 12/05/23: No known infectious disease contacts or current infectious disease symptoms. No noted recent Covid positive test result. - Outpatient joint assessment: Pt currently scheduled for inpatient pathway. If surgeon requests review for outpatient joint pathway, patient is not recommended candidate for outpatient joint program from anesthesia standpoint. - S/P Right TKA (03/31/23): SAB at L4-5 + regional at [facility] Chart Review Chart Review: Acceptable Risk for Surgery and Patient seen in Pre Admission Testing Teaching & Discussion Pre-Anesthesia Teaching/Discussion Notes: Instructed NPO after midnight before surgery,except medications with 15 cc of water. Medication instructions provided according to the PAT guidelines. History Surgery Operation Date: 12/25/23 08:40 Proposed Procedures p Left Total Knee Arthroplasty - Sesar Hughes, Height/Weight Height: 5 ft 3 in Weight: 113.9 kg Allergies Allergy/AdvReac Type Severity Reaction Status Date / Time No Known Drug Allergies Allergy Verified 11/20/23 11:05 adhesive tape AdvReac Unknown skin Verified 11/20/23 11:05 irritation Medications Home Medications Medication Instructions Recorded Confirmed Last Taken chlorthalidone 25 mg tablet 12.5 mg PO QAM 07/20/22 11/20/23 03/30/23 10:00 fluoxetine 40 mg capsule 40 mg PO QAM 07/20/22 11/20/23 03/31/23 05:30 folic acid 1 mg tablet 2 mg PO QAM 07/20/22 11/20/23 03/30/23 10:00 levothyroxine 100 mcg tablet 100 mcg PO QAM 07/20/22 11/20/23 03/31/23 05:30 (Synthroid) losartan 50 mg tablet 50 mg PO QAM 07/20/22 11/20/23 03/30/23 10:00 metformin 500 mg tablet 500 mg PO BID 07/20/22 11/20/23 03/30/23 18:00 propranolol 80 mg capsule,24 80 mg PO QAM 07/20/22 11/20/23 03/31/23 05:30 hr,extended release (Inderal LA) cholecalciferol (vitamin D3) 25 50 mcg PO QAM 02/27/23 11/20/23 03/30/23 10:00 mcg (1,000 unit) tablet (Vitamin D3) methotrexate sodium 2.5 mg tablet 10 mg PO WK 02/27/23 11/20/23 03/23/23 upadacitinib 15 mg tablet,extended 15 mg PO QAM 02/27/23 11/20/23 03/01/23 release 24 hr (Rinvoq) amoxicillin 500 mg tablet 1,000 mg PO BID 11/20/23 11/20/23 Unknown clarithromycin 500 mg tablet 500 mg PO BID 11/20/23 11/20/23 Unknown oxycodone 5 mg tablet 5 mg PO UD PRN Pain 11/20/23 11/20/23 Unknown pantoprazole 40 mg tablet,delayed 40 mg PO QAM 11/20/23 11/20/23 Unknown release (Protonix) Past Medical History Medical History Anxiety Chronic kidney disease Stage 3b Follows with Dr. 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) Hx of motion sickness Hypertension Low hemoglobin Chronic anemia, stable Had course of 4 treatments of iron infusions (completed 11/13/23) Osteoarthritis Postsurgical hypothyroidism Psoriatic arthritis Follows with Rheumatology [facility] Arthritis Rectal fistula Hx long-term issue dating back to ~, multiple surgical repair attempts (x5) Now "healed"/no current issues Exercise / Class Metabolic Activity III < 4 Walking/Shop/Light housework Past Family History Family History Other No family history of adverse response to anesthesia Past Surgical History Surgical History History of adenoidectomy History of colonoscopy History of colonoscopy History of endoscopy 11/07/23 History of rectal surgery rectal fistual repair attempts x5 History of thyroidectomy, subtotal 90% of thyroid removed as child (r/t hyperthyroidism/goiters) History of tonsillectomy Nausea and vomiting after administration of anesthetic agent nausea S/P excision of lipoma Knee region Status post right knee replacement 03/2023, [facility] Past Anesthesia History No Hx of Anesthesia Complications and No Family Hx of Anesthesia Complications History of PONV History of PONV and Hx of Motion Sickness Social History Smoking Status: Former smoker tobacco type: cigarettes Do You Dip or Chew Tobacco: No Smoking End Date: Quit 30 years ago Hx Alcohol Use: No Hx Substance Use: No substance use type: does not use Review of Systems Occasional palpitations. + snoring. Patient denies chest pain, shortness of breath, fever, chills, cough, wheezing. Physical Exam Vital Signs BP 110/70 P 57 TEMP 98.5 SP02 99%RA RESP 16 Physical Full cervical extension range of motion. Full TMJ range of motion. TMD 3 finger breaths Mallampati Score 1 Dentition: intact Lungs: clear throughout to auscultation Cardiac: regular rate and rhythm, no murmurs noted Spine: normal Carotid arteries: negative bruit Extremities: no LE edema Lab Results Anesthesia Preop Results Results Anesthesia Widget: WBC 6.01 K/ul (4.8-10.8) 12/05/23 Hgb 10.8 g/dl (12.0-16.0) L 12/05/23 Hct 32.5 % (37.0-47.0) L 12/05/23 Plt 223 K/uL (130-400) 12/05/23 Na 138 mmol/L (136-145) 12/05/23 K 4.9 mmol/L (3.5-5.1) 12/05/23 Cl 102 mmol/L (98-107) 12/05/23 CO2 27 mmol/L (21-32) 12/05/23 BUN 24 mg/dl (6-23) H 12/05/23 Creat 1.45 mg/dl (0.6-1.2) H 12/05/23 Glucose Level 84 mg/dl (70-99(Fasting)) 12/05/23 PT 10.5 Seconds (9.0-12.0) 12/05/23 PTT 26 Seconds (21-31) 12/05/23 INR 1.0 (0.9-1.1) 12/05/23 HA1c 5.4 % (4.5-5.6) 12/05/23 Blood Type O Positive 12/05/23 Antibody Screen NEGATIVE 12/05/23 Testing Electrocardiogram Date: 03/02/24 Findings: + NSR @ (62) Chest X-Ray Date: 03/02/23 FINDINGS: Cardiomediastinal and hilar silhouettes are within normal limits. No pneumothorax, pleural effusion, airspace consolidation or overt pulmonary edema. Age-indeterminate compression deformities at the thoracolumbar junction. Mild mid thoracic dextroscoliosis. IMPRESSION: No acute process.
[2023-12-25] MEDS: FAMOTIDINE 20 MG TAB PO SCH (05:43)
[2023-12-25] MEDS: ACETAMINOPHEN 500 MG TAB PO SCH ×2 (05:43→13:15)
[2023-12-25] MEDS: GABAPENTIN 300 MG CAP PO SCH (05:43)
[2023-12-25] MEDS: LR 500ML BOLUS, THEN 15ML/HR IV SCH (05:44)
[2023-12-25] MEDS: LR 60ML/HR IV SCH (05:44)
[2023-12-25] MEDS: dexAMETHasone**PF** 10 MG/ML VIAL IV SCH (05:47)
[2023-12-25] MEDS ORDERED: ROPIVACAINE 0.5% 5 MG/ML 30 ML VIAL ONE (06:24)
[2023-12-25] MEDS ORDERED: BUPIVACAINE 0.5 % 5 MG/1 ML PF 10ML VIAL ONE (06:26)
[2023-12-25] MEDS ORDERED: ONDANSETRON INJ 2 MG/ML 2 ML VIAL IV PRN ×2 (06:29→09:29)
[2023-12-25] MEDS ORDERED: ATROPINE SULFATE 0.1 MG/ML 10ML SYR IV PRN (06:29)
[2023-12-25] MEDS ORDERED: ePHEDrine sulfate 50 MG/ML AMP IV PRN (06:29)
[2023-12-25] MEDS ORDERED: fentaNYL citrate PF 100 MCG/2 ML VIAL IV PRN (06:29)
--- NOTE | 2023-12-25 06:29 | History & Physical Bridge Note ---
Date of Service December 25, 2023 History & Physical Bridge Note I have examined the patient, reviewed the History & Physical and in the interval since the performance of the History & Physical I have noted the following changes of clinical significance: no changes noted
[2023-12-25] MEDS ORDERED: PROPOFOL IV EMULSION 10 MG/ML 20 ML VIAL IV ONE (06:35)
[2023-12-25] MEDS ORDERED: MIDAZOLAM HCL 1 MG/ML 2ML VIAL ONE (06:35)
[2023-12-25] MEDS ORDERED: fentaNYL citrate PF 100 MCG/2 ML VIAL ONE (06:35)
[2023-12-25] MEDS: TRANEXAMIC ACID 1,000 MG **IV Pre-op IV SCH (06:49)
[2023-12-25] MEDS: ceFAZolin 2000MG 2,000 MG/15 ML SYR IV SCH ×2 (07:03→15:02)
[2023-12-25] MEDS ORDERED: ePHEDrine sulfate 50 MG/5 ML SYR ONE (07:23)
[2023-12-25] MEDS ORDERED: ONDANSETRON INJ 2 MG/ML 2 ML VIAL ONE (07:23)
[2023-12-25] MEDS ORDERED: PHENYLEPHRINE 100MCG/ML 10ML SYR IV ONE (07:23)
[2023-12-25] MEDS: TRANEXAMIC ACID 1,000 MG **IV Intra-op IV SCH (07:58)
[2023-12-25] MEDS: ROPIV 0.5% 246mg, Ketorolac 30mg, EPINEPHrine 0.5mg in NSS INFIL SCH (08:00)
[2023-12-25] MEDS: ORTHO JOINT ANESTHETIC ONE (08:00)
--- NOTE | 2023-12-25 08:10 | Operative Report ---
PG Post Operative Report Pre & Post Diagnosis Operation Date: 12/25/23 07:00 Pre-Op Diagnosis: Degenerative Joint Disease Left Knee Post-Op Diagnosis: Degenerative Joint Disease Left Knee I identified the patient and participated in the time-out.: Yes Procedure Operation Date: 12/25/23 07:00 Actual Procedures p Left Total Knee Arthroplasty, Cemented(Left) - Sesar Hughes DO Surgeon Sesar Hughes DO [employer] Code Enforcement Officer Sesar Puga PA-C Estimated Blood Loss 30 Findings Consistent with Post-Op Diagnosis Specimens Left femoral and tibial bone Description of Procedure Implants used: I used a Gordon Persona total knee arthroplasty system with a size 7 PS femur, E tibia, 31 oval patella, and a size 16 CPS polyethylene bearing. All components were cemented in place with Biomet cement. Maria Eugenia arrived [facility] for the above procedure. She was seen in the preoperative holding area and the operative extremity was identified and signed. She was given a preoperative antibiotic, TXA, a spinal anesthetic and an adductor nerve block. She was taken back to the operating room and laid on the table in supine position. She was given basic sedation. The operative knee was then prepped and draped in sterile fashion. A timeout was done, and the patient and the operative extremity was properly identified. A midline incision was made directly over the patella. Dissection was taken down to the extensor mechanism. A midvastus arthrotomy was used. The medial retinaculum was released and the fat pad was mostly excised. The knee was flexed and the ACL, PCL, and meniscus were removed. A drill was sent down the center of the femoral canal followed by an intramedullary melia. Off that melia a distal femoral cutting block was placed. 9 mm was resected off the distal femur at 5 of valgus. A posterior referencing AP sizing guide was then placed on the distal femur. The femur measured to be a size 7. 2 drill holes were placed in 3 of external rotation. A 4-in-1 cutting block was then impacted into place. Anterior, posterior, and chamfer cuts were then made. The proximal tibia was then exposed. An external tibial alignment guide was placed. A tibial cut guide was then anchored in place and the proximal tibia was then resected. The posterior aspect of the knee was then opened up and any additional meniscus fragments and osteophytes were removed. The tibia measured to be a size E. The tibial plate was then placed in the appropriate rotation and the tibia was drilled and punched. Trial components were then placed. I used a size 16 CPS polyethylene insert. The knee was brought through a full range of motion and felt to be stable. The peg holes for the femoral component were then drilled. The patella was then everted and 9 mm was resected off the posterior aspect of the patella. The patella measured to be a size 31 oval. 3 peg holes were then drilled. A trial patella was placed. The knee was once again brought through a full range of motion and felt to be stable. Trial components were then removed. The surrounding soft tissues were injected with 100 cc of an orthopedic pain control cocktail. All components were then cemented into place with Biomet cement. The final polyethylene insert was then snapped into place. Once cement was dry the tourniquet was deflated. Hemostasis was obtained. A dilute betadyne lavage was then done for 3 minutes. The joint was then irrigated with normal saline solution. The midvastus arthrotomy was then closed with #1 Vicryl suture. The skin was closed with 2-0 Vicryl, 3-0V lock suture, and corby. A soft compressive dressing was placed. She was then transferred to a hospital bed and taken to the postanesthesia care unit in stable condition. She tolerated the procedure well. Sesar Kendall PA-C, was present for the entire procedure. He was critical for patient positioning, prepping, draping, retraction exposure, wound closure and application of sterile dressing. I attest to the content of the Intraoperative Record and any orders documented therein. Any exceptions are noted below.
[2023-12-25] MEDS ORDERED: NALOXONE HCL 0.4 MG/1 ML VIAL/CARP IV PRN (09:29)
[2023-12-25] MEDS ORDERED: bisacodyL 10 MG SUPP PR PRN (09:29)
[2023-12-25] MEDS ORDERED: PHARMACY GLYCEMIC MGMT CONSULT PRN (09:29)
[2023-12-25] MEDS ORDERED: MAGNESIUM HYDROXIDE SUSP 30 ML UDC PO PRN (09:29)
[2023-12-25] MEDS ORDERED: METOCLOPRAMIDE HCL INJ 5 MG/ML 2 ML VIAL IV PRN (09:29)
[2023-12-25] MEDS ORDERED: HYDROmorphone INJ 0.5 MG/0.5 ML SYR IV PRN (09:29)
--- NOTE | 2023-12-25 09:56 | Pharmacy Report ---
Pharmacy Glycemic Short Note 2 - Date of Service December 25, 2023 - Glycemic Short BSG Results (Last 24 hours): 12/25/23 12/25/23 05:31 08:34 POC Glucose 144 H 143 H OUTPATIENT ANTIDIABETIC REGIMEN: * metformin 500 mg bid ASSESSMENT: * 63 year old now s/p L TKA, POD 0 - pharmacy consulted for glycemic management. Patient received iv steroids preop therefore anticipate steroid induced hyperglycemia. Plan to add dose of NPH 0.2 units/kg x 1 now and will start novolog weight based stress 2/3 PLAN FOR INPATIENT GLYCEMIC CONTROL: * Hold outpatient oral diabetes medications * Basal insulin * NPH 25 units x 1 * Bolus insulin * NovoLog per scale ACHS or Q6hrs while NPO * Goal Range: Low 110 mg/dL - High 140 mg/dL * Correction Factor: 20 mg/dL/unit * Nutritional / Prandial insulin per carb ratio of 1 unit per 6 grams CHO consumed
[2023-12-25] MEDS ORDERED: DEXTROSE 50% 50 ML SYRINGE IV PRN (10:00)
[2023-12-25] MEDS ORDERED: GLUCAGON FOR INJ 1 MG VIAL IM PRN (10:00)
[2023-12-25] MEDS ORDERED: GLUCOSE 40% GEL 15 GM TUBE PO PRN (10:00)
[2023-12-25] MEDS ORDERED: GLUCOSE 10 TAB/TUBE PO PRN (10:00)
[2023-12-25] MEDS ORDERED: CARBOHYDRATES FOR HYPOGLYCEMIA PO PRN (10:00)
[2023-12-25] MEDS: SODIUM CHLORIDE 0.9% 1,000 ML IV SCH (10:03)
[2023-12-25] MEDS: FLUoxetine HCL 20 MG CAP PO SCH (10:05)
[2023-12-25] MEDS: PROPRANOLOL HCL LA 80 MG CAPCR PO SCH (10:05)
[2023-12-25] MEDS: NovoLIN-N (NPH) PER UNIT CHARGE SQ ONE (10:28)
[2023-12-25] MEDS: INSULIN ASPART PER UNIT CHARGE SC SCH (10:31)
[2023-12-25] MEDS: DOCUSATE SODIUM 100 MG CAP PO SCH (10:34)
[2023-12-25] MEDS: FOLIC ACID 1 MG TAB PO SCH (10:34)
[2023-12-25] MEDS: MULTIVITAMIN TAB PO SCH (10:34)
[2023-12-25] MEDS: ASPIRIN 81 MG ECTAB PO SCH (10:35)
[2023-12-25] MEDS: LEVOTHYROXINE SODIUM 100 MCG TABLET PO SCH (10:35)
[2023-12-25] MEDS: KETOROLAC TROMETHAMINE 15 MG/ML VIAL IV SCH (10:35)
[2023-12-25] MEDS: CHLORTHALIDONE 25 MG TAB PO SCH (11:26)
[2023-12-25] MEDS: LOSARTAN POTASSIUM 50 MG TAB PO SCH (11:26)
--- NOTE | 2023-12-25 13:29 | XRay Report ---
XR knee LT 1 or 2V routine CLINICAL HISTORY: Postoperative evaluation. COMPARISON: Left knee radiographs May 21, 2023 FINDINGS: Alignment of the total left knee arthroplasty is anatomic. There is no periprosthetic frac ture or unexpected radiopaque foreign body. There are skin corby. IMPRESSION: Expected findings following total left knee arthroplasty. ACT 112: Negative or not required by law. Electronically signed by: Bryce Walter M.D. 12/25/2023 1:27 PM
[2023-12-25] MEDS: SENNA 8.6 MG TAB PO SCH (19:55)
[2023-12-25] MEDS: oxyCODONE HCL IR 5 MG TAB (IMMEDIATE RELEASE) PO PRN (23:11)
[2023-12-26 11:05] LABS: Hematocrit (blood only) 29.9 % (37.0-47.0); Hemoglobin 9.4 g/dl (12.0-16.0)
--- NOTE | 2023-12-26 13:52 | Orthopedic Progress Note ---
Date of Service December 26, 2023 Assessment & Plan (1) Status post left knee replacement: Overall, she is doing quite well today with good pain control to the left knee. She will work with physical therapy later this morning to work on ambulation and range of motion exercises. She is on aspirin for DVT prophylaxis. She can be discharged home later this morning pending formal physical therapy evaluation recommendations. She will follow-up in 2 weeks with orthopedics for postoperative management. Subjective .Maria Eugenia was seen and evaluated this morning resting comfortably in no apparent distress. She notes that her pain is well-controlled to the left knee. She has yet to work with physical therapy this morning. She has been up and out of bed with no significant issues. She denies any other concerns today. Review of Systems All systems reviewed & are unremarkable except as noted in HPI & below. Physical Exam . On physical examination of left knee, dressings are clean, dry, intact. Her leg is out in full extension. She has active plantarflexion dorsiflexion of the left ankle. +2 DP and PT pulses. Less than 2-second capillary refill. Normal sensation. Neurovascular intact. Results & Data Results & Data Laboratory Results . Diagnostic Findings . Postoperative x-rays of the left knee show prosthesis to be in anatomical alignment with no signs of fracture complication or loosening. PG Care Time/CCT Total # of Minutes Spent Total Time Spent with Patient: Total time spent is greater than 50% in coordination of care (as documented) at patient's floor/unit and/or counseling patient: Coding Level of Care Code 70940 Post Operative Follow-Up Diagnoses Status post left knee replacement Z96.652
--- NOTE | 2023-12-26 13:54 | Discharge Summary ---
Date of Service December 26, 2023 Principal Diagnosis Same as "Discharge Diagnosis" noted below under Discharge Instructions. Discharge Exam . On physical examination of left knee, dressings are clean, dry, intact. Her leg is out in full extension. She has active plantarflexion dorsiflexion of the left ankle. +2 DP and PT pulses. Less than 2-second capillary refill. Normal sensation. Neurovascular intact. Discharge Data Procedures Performed Operation Date: 12/25/23 07:00 Actual Procedures p Left Total Knee Arthroplasty, Cemented(Left) - Sesar Hughes DO Ordered Studies 12/25/23 05:00 US - OR guided needle placemen Routine Hospital Course (1) Status post left knee replacement: On December 25, 2023 Maria Eugenia arrived at [facility] and underwent a left total knee arthroplasty performed by Dr. Hughes with no complications. She had a spinal anesthetic. Postoperatively, she was started on aspirin for DVT prophylaxis and transferred to the general orthopedic floor in stable condition. Her hospital course was uneventful. On postoperative day #1, her vital signs were stable and her pain was well-controlled. She participated well with physical therapy working on ambulation and range of motion exercises. She was then discharged home in stable condition. She will follow-up with orthopedics in 2 weeks for postoperative management. PG Care Time/CCT Total # of Minutes Spent Total Time Spent with Patient: Total time spent is greater than 50% in coordination of care (as documented) at patient's floor/unit and/or counseling patient: Discharge Plan Discharge Items Patient Disposition: Home - Home Health Services Reason For Visit: Degenerative Joint Disease Left Knee Discharge Diagnosis: Same Activity: Per Instructions section Non-emergency contact: Surgeon Call non-emergency contact if: your temperature is above 101.5, your wound has increased redness, your wound has increased drainage and your wound pain has increased Follow-up/Referrals: Nikita Pro D.O. [Primary Care Provider] - Diet: Regular Addtl Attending Provider Instructions: Activity and Therapy Recommendations: * If you are using [facility] then therapy will be provided at your home until they feel you have accomplished all of your goals. * If you are using [facility] then Physical Therapy will be provided until they feel you are ready to start Outpatient Physical Therapy. * If you are not using home therapy then Outpatient Physical Therapy should start about 3-5 days from your day of surgery. Therapy will last about 6-10 weeks * It is important not to put a pillow under your knee when you are relaxing or sleeping. It is just as important to make sure you are getting your knee perfectly straight as it is to regain your knee bend. * You were shown a series of exercises in the hospital. Do these exercises three times each day including the exercises you were shown in physical therapy. * Get up and walk several times each day. For the first four weeks, try not to stand or walk for more than one hour at a time. If you do stand or walk for more than one hour, you will not hurt anything, but your leg will likely swell. * As you feel comfortable, you may change from the walker or crutches to a cane and then to independent walking. Medications: * Narcotic You will likely be sent home from the hospital with a prescription for the narcotic pain medication that worked best throughout your stay. * Cefadroxil -take the antibiotic twice a day for 10 days to help prevent infection. * Aspirin Most patients will be required to take Aspirin 81mg twice a day for 6 weeks after surgery. This is obtained [id number] and a prescription is not necessary. * Other medications may be prescribed for specific circumstances. If you have any questions, please call the office at . * Resume previous home medications unless otherwise instructed TEDs/Elastic Stockings: The white elastic stockings help limit swelling and prevent blood clots from forming in your legs.~ The more you wear them, the more they work. Wear them for six weeks. Dressing Care: The dressing can be changed after physical therapy on postop day #1. Daily dry dressing changes for a few days, especially if the incision is still draining some. If the incision is not draining then you may leave the corby open to air. If there is a little bit of drainage or if the corby are getting stuck on your clothing then cover the incision with a dry dressing. The corby will be removed at your 2 week follow-up appointment. Showering: You may shower 5 days from the day of surgery as long as the incision is no longer draining. You may shower with the corby exposed. Let soapy water run over the corby and pat them dry. Do not scrub or soak the incision. Things To Watch For: * Drainage from the incision site that occurs more than one week after your surgery. * Increased redness at the incision site. * Fever above 102 degrees Fahrenheit. * Unusual chest pain or shortness of breath. * Call [facility] at with any of the above problems Follow-Up Visit: Follow-up with Dr. Hughes's PA (Sesar Kendall) 2-3 weeks after your day of surgery. He will remove your corby and answer any questions. If you have any additional questions or concerns, Dr Hughes is usually in the office at the same time and will be available An appointment was probably scheduled when you signed-up for surgery in the office. If you have any questions call Office Instructions: More detailed instructions as well as Frequently Asked Questions were provided in a folder by our office when you signed-up for surgery. Please review these instructions when you get home. If you have any further questions or concerns, please feel free to call the office at [phone] Pending Studies at Discharge: No Stand-Alone Forms: My [facility], Pain - Opioid Pain Management, Smoking Cessation Medications and DC Order Prescriptions: No Action tramadol 50 mg tablet 50 mg PO Q6H PRN (Reason: pain) Qty: 20 0RF chlorthalidone 25 mg tablet 12.5 mg PO QAM propranolol [Inderal LA] 80 mg capsule,extended release 24hr 80 mg PO QAM levothyroxine [Synthroid] 100 mcg tablet 100 mcg PO QAM fluoxetine 40 mg capsule 40 mg PO QAM folic acid 1 mg tablet 2 mg PO QAM losartan 50 mg tablet 50 mg PO QAM metformin 500 mg tablet 500 mg PO BID methotrexate sodium 2.5 mg Tablet 10 mg PO WK Patient Comments: fridays cholecalciferol (vitamin D3) [Vitamin D3] 25 mcg (1,000 unit) Tablet 50 mcg PO QAM Rinvoq 15 mg Tablet Extended Release 24 Hr 15 mg PO QAM clarithromycin 500 mg Tablet 500 mg PO BID amoxicillin 500 mg Tablet 1,000 mg PO BID Patient Comments: taking for 2 weeks started 11/15/23 pantoprazole [Protonix] 40 mg Tablet,Delayed Release (Dr/Ec) 40 mg PO QAM Patient Comments: while on current antiboitic oxycodone 5 mg Tablet 5 mg PO UD PRN (Reason: Pain) Ej/Other Patient Handouts: DVT Post Op Prevention Admission Data Admit Date/Time: 12/25/23 08:29 Attending Provider: Sesar Hughes Admit Provider: Sesar Hughes Primary Care Provider: Nikita Pro Other Providers: [facility],Home [facility] Other Interventions: Discharge Summary Assessment (RN) Last Done: 12/26/23 10:22
[2023-12-29] MEDS ORDERED: metHOTREXate sodium 2.5 MG TAB PO SCH (09:00)
== END 2023-12-26 15:21 | disposition home health service (06) ==
LOC: 3E 04:59 → ASU 04:59